=== PATIENT | female | born 1945 | race Caucasian/White ===

== ENCOUNTER 2017-09-20 18:53 | Emergency (ER) | payer OTHER ==
[~2017-09-20] VITALS: Ht 154.9 cm; Wt 46.4 kg
[2017-09-20 18:56] VITALS: BP 147/78
[2017-09-20] MEDS ORDERED: ALBU8HFA IH (19:03)
[2017-09-20] MEDS ORDERED: ADV100 IH (19:03)
[2017-09-20] MEDS ORDERED: ACETAMINOPHEN 325 MG TABLET PO ONE (20:00)
== END 2017-09-20 20:50 | disposition home or self-care (01) ==
LOC: EMS 18:55
DX: S60.222A Contusion of left hand, initial encounter (principal); S80.02XA Contusion of left knee, initial encounter; J45.909 Unspecified asthma, uncomplicated; J44.9 Chronic obstructive pulmonary disease, unspecified; I10 Essential (primary) hypertension; Z88.0 Allergy status to penicillin; Z91.041 Radiographic dye allergy status; V47.5XXA Car driver injured in collision with fixed or stationary object in traffic accident, initial encounter; Y93.89 Activity, other specified; Y92.89 Other specified places as the place of occurrence of the external cause; Y99.8 Other external cause status
CPT/HCPCS: 99284